=== PATIENT | male | born 1980 | race African-American/Black ===

== ENCOUNTER 2017-07-24 22:23 | Emergency (ER) | payer OTHER ==
[~2017-07-24] VITALS: Ht 185.4 cm; Wt 127.5 kg
[2017-07-24] MEDS ORDERED: PENICILLIN V P500 MG PO (22:57)
[2017-07-24] MEDS ORDERED: NORCO 5-325 TA1 EACH PO (22:57)
== END 2017-07-24 22:45 | disposition home or self-care (01) ==
LOC: ER 22:23
DX: K04.7 Periapical abscess without sinus (principal); F17.210 Nicotine dependence, cigarettes, uncomplicated